=== PATIENT | female | born 1995 | race Caucasian/White ===

== ENCOUNTER 2017-05-10 13:32 | Emergency (ER) | payer MEDICAID ==
[2017-05-10 13:39] VITALS: BP 115/68; PULSE 90; RESP 18; TEMP 98.2; O2SAT 98
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
== END 2017-05-10 15:10 | disposition home or self-care (01) ==
DX: S09.90XA Unspecified injury of head, initial encounter (principal); S16.1XXA Strain of muscle, fascia and tendon at neck level, initial encounter; S69.91XA Unspecified injury of right wrist, hand and finger(s), initial encounter; S09.93XA Unspecified injury of face, initial encounter; J45.909 Unspecified asthma, uncomplicated; F17.200 Nicotine dependence, unspecified, uncomplicated; Y08.89XA Assault by other specified means, initial encounter; Y92.830 Public park as the place of occurrence of the external cause
CPT/HCPCS: A4565

== ENCOUNTER 2017-05-24 18:32 | Emergency (ER) | payer MEDICAID ==
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
[2017-05-24] MEDS ORDERED: IBUPROFEN 600 MG TAB PO ONE (19:30)
[2017-05-24 20:25] VITALS: BP 122/79; PULSE 85; RESP 20; TEMP 98.2; O2SAT 97
== END 2017-05-24 20:25 | disposition home or self-care (01) ==
LOC: EDUNIT#
DX: S92.512A Displaced fracture of proximal phalanx of left lesser toe(s), initial encounter for closed fracture (principal); F17.200 Nicotine dependence, unspecified, uncomplicated; W22.8XXA Striking against or struck by other objects, initial encounter

== ENCOUNTER 2017-06-08 20:10 | Emergency (ER) | payer MEDICAID ==
[2017-06-08 20:17] VITALS: BP 118/67; PULSE 96; RESP 16; TEMP 98.8; O2SAT 94
--- NOTE | 2017-06-08 20:37 | EDPHY ---
H & P Stated Complaint: L elbow injury d/t fall from skateboard HPI/ROS: CHIEF COMPLAINT: Skateboarding fall, left elbow pain HISTORY OF PRESENT ILLNESS: Patient reports left elbow pain after falling while skateboarding. This was just prior to arrival. She reports is falling from her skateboard and landing on her left arm with the elbow flexed. She struck the elbow 1st. Sudden onset of severe pain in the left olecranon. Pain radiates down the forearm. There is no tenderness of the left hand or wrist. No tenderness of the left shoulder. Too painful for her to move the arm. No numbness. Some paresthesia of the arm. No lacerations. No head strike or loss of conscious. No chest, back or abdominal pain. No injury to the legs with the right upper extremity. No other associated complaints or modifying factors. PRIOR ORTHO INJURIES: Multiple ESTABLISHED ORTHOPEDIST: Previously Dr. Francois. No current orthopedist REVIEW OF SYSTEMS: Ten systems reviewed and are negative unless otherwise noted in the HPI EXAMINATION General Appearance: Alert, no distress Cardiovascular: Pulses normal throughout. Symmetric radial pulses 2+ Brisk cap refill Neurological: A&O, sensory symmetric, strength symmetric. No wrist drop. Normal sensation of the posterior of the hand. Two point sensation of the fingers. Strength is 5/5 in the left wrist and fingers. Unable to test strength and left a with pain Skin: Warm and dry, no rash. No lacerations abrasions or contusions. Extremities: Tender palpation of the left humeral condyles in the left elbow globally. Difficult to pinpoint her area of pain. Unable to fully extend the elbow. Unable to pronate or supinate without pain. Range of motion of the left wrist and fingers fully intact. Range of motion of shoulder intact. Neurovascular intact distally Psychiatric: Mood and affect normal DIFFERENTIAL DIAGNOSES: Including but not limited to fracture, sprain, strain, contusion, hematoma, dislocation MDM: 8:35 p.m. Mechanical fall from skateboard injury left olecranon pain. X-ray as read by me does not reveal any obvious fracture dislocation. I will await the radiologist's interpretation given the patient's level of pain. She is neurovascular intact in no acute distress. 9:00 p.m. No definite obvious fracture dislocation. No posterior sail sign. Given the location of her pain in the difficulty with extension of the elbow, I will place her in a posterior splint for prophylactic coverage. She is to follow up with Orthopedics for definitive care. Avoid extending the arm fully until seen by Orthopedics. Return to ER for any motor sensory changes as discussed. Patient is comfortable this plan and discharged home stable condition, neurovascular intact. We discussed sling and splint care. 9:30 p.m. X-ray has been read as possible occult fracture of the radial head. She was splinted appropriately for the possibility of this with posterior splint. She is instructed to follow up with Orthopedics for definitive care. ER precautions discussed ED Precautions: Worsening pain. Erythema, edema, cyanosis, pallor, paresthesia or anesthesia. SUPERVISION: This patient was independently evaluated without direct examination by the attending physician. Case was discussed with attending physician. Source: Patient Exam Limitations: No limitations - Personal History LMP (Females 10-55): 1-7 Days Ago Current Tetanus/Diphtheria Vaccine: Yes Tetanus Vaccine Date: within last 10 years - Medical/Surgical History Hx Asthma: No Hx Chronic Respiratory Disease: No Hx Diabetes: No Hx Cardiac Disease: No Hx Renal Disease: No Hx Cirrhosis: No Hx Alcoholism: No Hx HIV/AIDS: No Hx Splenectomy or Spleen Trauma: No Other PMH: PMHx: ADD, bipolar. PSHx: denies - Social History Smoking Status: Current some day smoker Constitutional: Initial Vital Signs Temperature (C) 98.8 F 06/08/17 20:14 Heart Rate 96 06/08/17 20:14 Respiratory Rate 16 06/08/17 20:14 Blood Pressure 118/67 06/08/17 20:14 O2 Sat (%) 94 06/08/17 20:14 O2 Delivery Mode Room Air Allergies/Adverse Reactions: No Known Allergies Allergy (Unverified 05/24/17 18:33) Home Medications: Medication Instructions Recorded INTUNIV 04/29/16 LAMOTRIGINE 05/24/17 Seroquel 05/24/17 Ibuprofen 600 mg PO Q8 PRN #15 tablet 06/08/17 Medical Decision Making - Diagnostics Imaging Results: Imaging Impressions Elbow X-Ray 06/08/17 20:17 Impression: Query radiographically occult fracture, evidenced by a positive fat pad sign, with conservative management and follow-up radiography recommended as clinically directed.. - Data Points Medications Given: Discontinued Medications Ibuprofen (Motrin) 600 mg PO EDNOW ONE Stop: 06/08/17 21:07 Last Admin: 06/08/17 21:27 Dose: 600 mg Departure - Departure Disposition: Home, Routine, Self-Care Clinical Impression: Elbow pain, left Left elbow contusion Qualifiers: Encounter type: initial encounter Qualified Code(s): S50.02XA - Contusion of left elbow, initial encounter Condition: Good Instructions: Elbow Fracture (ED), Elbow Bursitis (ED), Elbow Sprain (ED) Additional Instructions: 1. Weightbearing instructions as discussed 2. Follow up with Orthopedics for definitive care 3. Return here for any worsening pain, numbness, tingling, wrist drop Referrals: NONE *PRIMARY CARE P,. [Primary Care Provider] - As per Instructions Wade Perdomo MD [Medical Doctor] - As per Instructions Prescriptions: Ibuprofen 600 mg PO Q8 PRN #15 tablet PRN Reason: Pain, Mild
[2017-06-08] MEDS ORDERED: IBUPROFEN 600 MG TAB PO ONE (21:06)
== END 2017-06-08 21:28 | disposition home or self-care (01) ==
DX: S50.02XA Contusion of left elbow, initial encounter (principal); F17.200 Nicotine dependence, unspecified, uncomplicated; V00.131A Fall from skateboard, initial encounter; Y99.8 Other external cause status; Y93.51 Activity, roller skating (inline) and skateboarding
CPT/HCPCS: A4565

== ENCOUNTER 2018-03-24 22:21 | Emergency (ER) | payer MEDICAID ==
[2018-03-24 22:34] VITALS: BP 124/73
--- NOTE | 2018-03-24 22:50 | EDPHY ---
H & P Time Seen by Provider: 03/24/18 22:47 HPI/ROS: 23-year-old female presents complaining of left ankle pain, left foot pain. She states she was caring her dog down the stairs and inverted her left ankle. Review of systems General no fever no chills no weakness HEENT no eye pain no eye discharge. No eye redness, no sore throat Respiratory no cough, no shortness of breath Cardiac no chest pain, no peripheral edema GI no abdominal pain, no diarrhea, no constipation, no nausea, no vomiting no flank pain, no hematuria, no dysuria Musculoskeletal no myalgias, positive joint pain Heme no easy bruising, no easy bleeding Endo no polyuria, no polydipsia Skin no rashes, no pruritus Neuro no syncope, no dizziness, no headaches Psych is no suicidal ideation, no homicidal ideation Past Medical/Surgical History: Non contributory Social History: Unknown alcohol and drug use Smoking Status: Current some day smoker Physical Exam: 23-year-old female alert and oriented no acute distress nontoxic appearance, afebrile Atraumatic normocephalic Extraocular muscles intact, anicteric Neck no JVD No respiratory distress Extremities Left lower extremity Good capillary refill good dorsalis pedis good posterior tibialis No gross deformity Slight swelling at lateral aspect of ankle as well as lateral proximal foot Full range of motion of ankle and foot Positive tenderness when just below lateral malleolus No instability Constitutional: Initial Vital Signs Temperature (C) 37.1 C 03/24/18 22:31 Heart Rate 92 03/24/18 22:31 Respiratory Rate 18 03/24/18 22:31 Blood Pressure 124/73 H 03/24/18 22:31 O2 Sat (%) 97 03/24/18 22:31 O2 Delivery Mode Room Air Allergies/Adverse Reactions: No Known Allergies Allergy (Unverified 05/24/17 18:33) Home Medications: Medication Instructions Recorded Seroquel 05/24/17 Medical Decision Making - Diagnostics Imaging Results: Imaging Impressions Ankle X-Ray 03/24/18 22:24 Impression: Negative for fracture. ED Course/Re-evaluation: Patient seen and evaluated for left ankle pain Left ankle inversion injury X-ray negative Impression Acute left ankle sprain Plan Rest ice compression elevation Joni wrap Ibuprofen as needed for pain Follow up with primary care physician Differential Diagnosis: Differential diagnosis considered but not limited to: Ankle sprain, ankle fracture, foot sprain, foot fracture Departure - Departure Disposition: Home, Routine, Self-Care Clinical Impression: Ankle sprain Condition: Good Instructions: Ankle Sprain (ED) Referrals: [facility] [Provider Group] - As per Instructions
== END 2018-03-24 22:57 | disposition home or self-care (01) ==
LOC: CED 22:21
DX: S93.402A Sprain of unspecified ligament of left ankle, initial encounter (principal); F17.200 Nicotine dependence, unspecified, uncomplicated; X50.9XXA Other and unspecified overexertion or strenuous movements or postures, initial encounter; Y99.8 Other external cause status; Y93.89 Activity, other specified
CPT/HCPCS: 73610-PO

== ENCOUNTER 2018-08-18 14:51 | Emergency (ER) | payer MEDICAID ==
--- NOTE | 2018-08-18 15:03 | EDPHY ---
General Time Seen by Provider: 08/18/18 14:58 Narrative: CHIEF COMPLAINT: Fall from skateboard, wrist pain HISTORY OF PRESENT ILLNESS: Patient presents by private vehicle with complaints of right wrist pain. She was on her skateboard just prior to arrival when she fell, landing on her right arm in an abducted position with the arm against the chest. She felt a sudden onset of pain in the wrist, ulnar more than radial. Worse with palpation movement. Worse when she was sitting bumps while driving here. She has some tingling of the right hand on the dorsum. No numbness. No weakness. For range of motion of the fingers, wrist and elbow. She has no head strike or loss of conscious. No headache, neck pain. No chest, back or abdominal pain or injuries. She is right-hand dominant. She has no other associated complaints or modifying factors DOMINANT EXTREMITY: Right-hand dominant ESTABLISHED ORTHOPEDIST: None currently REVIEW OF SYSTEMS: Ten systems reviewed and are negative unless otherwise noted in the HPI PAST MEDICAL HISTORY: Previous wrist injuries, bipolar disorder PAST SURGICAL HISTORY: No surgical history SOCIAL HISTORY: Nonsmoker. Lives and works here independently. FAMILY HISTORY: Noncontributory EXAMINATION: General Appearance: Alert, no distress Cardiovascular: Symmetric radial pulses. Brisk cap refill the fingers right hand. Neurological: GCS 15. A&O, 2 point and light sensory symmetric in the upper extremities, delivery of shopping news and interossei strength symmetric Skin: Warm and dry, no rash. Multiple tattoos on her extremities. Extremities: Tenderness of the right wrist, primarily over the ulnar styloid. There is no snuffbox tenderness. No tenderness over the metacarpals, fingers, elbow or shoulder on the right upper extremity. Range of motion of the extremities symmetric. Painless extension of the right elbow. Compartments are soft in the upper extremities with no signs of compartment syndrome Psychiatric: Mood and affect normal DIFFERENTIAL DIAGNOSES: Including but not limited to wrist sprain, restrained, wrist fracture, scaphoid injury, forearm fracture MDM: 3:00 p.m. The mechanical fall from skateboard with right wrist pain. There is no snuffbox tenderness. There is no laceration or puncture. No obvious deformity or injury. There is full range of motion upper extremities with no pain with extension of the right elbow. I have ordered x-ray of the right wrist. She is declining pain medication. 3:40 p.m. X-ray as read by me, without radiologist, reveals no acute fracture. I have re- evaluated the patient. She does have mild pain that does warrant a Velcro thumb spica to protect her scaphoid. I have provided the on-call orthopedist for to follow up with if she still has pain at 10 days. We discussed ED precautions for any worsening pain, numbness, tingling or weakness. We discussed ice, elevation anti-inflammatories. I have answered all her questions. She is neuro intact and discharged home stable condition. SUPERVISION: This patient was independently evaluated without direct involvement of or examination by the attending physician. - History Smoking Status: Current some day smoker - Objective Vital Signs: Initial Vital Signs Temperature (C) 99.3 F 08/18/18 14:55 Heart Rate 104 H 08/18/18 14:55 Respiratory Rate 16 08/18/18 14:55 Blood Pressure 116/71 08/18/18 14:55 O2 Sat (%) 98 08/18/18 14:55 O2 Delivery Mode Room Air Allergies/Adverse Reactions: No Known Allergies Allergy (Unverified 08/18/18 14:55) Home Medications: Medication Instructions Recorded Seroquel 05/24/17 Departure - Departure Disposition: Home, Routine, Self-Care Clinical Impression: Sprain of wrist, right Qualifiers: Encounter type: initial encounter Qualified Code(s): S63.501A - Unspecified sprain of right wrist, initial encounter Condition: Good Instructions: Wrist Sprain (ED) Additional Instructions: 1. Use your Velcro splint as needed until your 100% pain-free or cleared by orthopedist 2. Follow up with orthopedist in 7-10 days if you are still having pain. You may need a subsequent x-ray 3. Ice and elevate often 4. Ibuprofen [id number] as needed 5. ED precautions as discussed Referrals: Addis Nunez PA [Primary Care Provider] - As per Instructions Lester Vail MD [Medical Doctor] - As per Instructions Stand Alone Forms: Statement of Treatment
[2018-08-18 16:03] VITALS: BP 119/71
== END 2018-08-18 16:03 | disposition home or self-care (01) ==
DX: S63.501A Unspecified sprain of right wrist, initial encounter (principal); V00.131A Fall from skateboard, initial encounter; Y92.480 Sidewalk as the place of occurrence of the external cause; Z87.81 Personal history of (healed) traumatic fracture; F17.200 Nicotine dependence, unspecified, uncomplicated
CPT/HCPCS: L3807